=== PATIENT | male | born 1995 | race African-American/Black ===

== ENCOUNTER 2017-11-02 19:27 | Emergency (ER) | payer BC, SELFPAY ==
[2017-11-02 20:16] LABS: Urine Blood NEGATIVE (NEG); Urine Glucose NEGATIVE (NEG); Urine Protein 1+ (NEG); Urine Specific Gravity 1.025 (1.005-1.030); Urine pH 6.5 (5.0-7.0)
--- NOTE | 2017-11-02 20:19 | EDPHYS ---
Physician Documentation [facility] Name: Chucho Machuca Age: 21 yrs Sex: Male : 1995 Arrival Date: 11/02/2017 Time: 19:30 Bed 18 Private MD: ED Physician Anthony Cortés HPI: 11/02 19:49 This 21 yrs old Black Male presents to ER via Ambulatory with complaints of Back Pain. jmm 19:49 The patient presents with pain that is acute. The symptoms are located in the lumbar jmm spine. Onset: The symptoms/episode began/occurred gradually, 1 week(s) ago. The pain does not radiate. Associated signs and symptoms: Pertinent negatives: abdominal pain, dysuria, fever, hematuria, incontinence, numbness, tingling, urinary retention, vomiting. This is a 21 year old male with no chronic medical conditions that presents to the ED with right lower back pain beginning approx 1 week ago. Patient denies fever, abdominal pain, vomiting, shortness of breath, numbness, radiation of pain. 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 . Historical: - Allergies: 19:45 PENICILLINS; fc - Home Meds: 19:45 None [Active]; fc - PMHx: 19:45 None; fc - PSHx: 19:45 None; fc - Immunization history:: Last tetanus immunization: up to date. - Social history:: Smoking status: Patient uses tobacco products, smokes one-half pack cigarettes per day, Patient/guardian denies using alcohol, street drugs. - Ebola Screening: : Patient negative for fever greater than or equal to 101.5 degrees Fahrenheit, and additional compatible Ebola Virus Disease symptoms Patient denies exposure to infectious person Patient denies travel to an Ebola-affected area in the 21 days before illness onset. ROS: 19:49 Constitutional: Negative for fever, chills, and weight loss, Cardiovascular: Negative [facility] for chest pain, palpitations, and edema, Respiratory: Negative for shortness of breath, cough, wheezing, and pleuritic chest pain, Abdomen/GI: Negative for abdominal pain, nausea, vomiting, diarrhea, and constipation. 19:49 MS/Extremity: Negative for injury and deformity, Skin: Negative for injury, rash, and discoloration, Neuro: Negative for headache, weakness, numbness, tingling, and seizure. 19:49 Back: Positive for pain with movement. 19:49 All other systems are negative. Exam: 19:49 Constitutional: This is a well developed, well nourished patient who is awake, alert, jmm and in no acute distress. Head/Face: atraumatic. Eyes: EOMI, no conjunctival erythema appreciated ENT: Moist Mucus Membranes Neck: Trachea midline, Supple Chest/axilla: Normal chest wall appearance and motion. Cardiovascular: Regular rate and rhythm. No edema appreciated Respiratory: Normal respirations, no respiratory distress appreciated Abdomen/GI: Non distended, soft 19:49 MS/ Extremity: Moves all extremities, no obvious deformities appreciated, no edema noted to the lower extremities Neuro: Awake and alert, normal gait 19:49 Back: pain, that is mild, of the right low back, ROM is normal, painful, CVA tenderness, is absent, muscle spasm, is not present. 19:49 Neuro: Orientation: is normal, Mentation: is normal, Memory: is normal, extension of the great toes noted bilaterally. 19:49 Psych: Behavior/mood is pleasant, cooperative. Vital Signs: 19:45 BP 144 / 75; Pulse 65; Resp 18; Pulse Ox 100% on R/A; Weight 69.85 kg (R); Height 5 ft. fc 10 in. (177.80 cm) (R); Pain 7/10; 20:56 BP 127 / 68; Pulse 80; Resp 17 S; Temp 98.5(O); Pulse Ox 100% on R/A; jd3 19:45 Body Mass Index 22.10 (69.85 kg, 177.80 cm) fc MDM: 19:48 Patient medically screened. [facility] 20:16 Data reviewed: vital signs, nurses notes, lab test result(s). Counseling: I had a [facility] detailed discussion with the patient and/or guardian regarding: the historical points, exam findings, and any diagnostic results supporting the discharge/admit diagnosis, the need for outpatient follow up, to return to the emergency department if symptoms worsen or persist or if there are any questions or concerns that arise at home. ED course: Urine dip negative for blood. Symptoms appear consistent with back strain. patient will be put on a course of muscle relaxers and anti inflammatories. Patient advised to return to the ED if he develops abdominal pain, vomiting, fever, or worsening pain. . 20:23 Counseling: I had a detailed discussion with the patient and/or guardian regarding: the [facility] presence of at least one elevated blood pressure reading (>120/80) during this emergency department visit. 11/02 20:11 Order name: Urine Dipstick--Ancillary (enter results) rg2 11/02 20:11 Order name: Urine Dipstick-Ancillary; Complete Time: 20:23 [facility] 11/02 19:48 Order name: Urine Dipstick-Ancillary (obtain specimen); Complete Time: 20:10 [facility] Administered Medications: No medications were administered Disposition: 11/03 09:29 Co-signature as Attending Physician, Anthony Cortés MD I agree with the assessment and luciano plan of care. Disposition: 11/02/17 20:18 Discharged to Home. Impression: Strain of muscle, fascia and tendon of lower back. - Condition is Stable. - Discharge Instructions: Back Pain, Adult. - Prescriptions for Ibuprofen 800 mg Oral Tablet - take 1 tablet by ORAL route every 12 hours As needed take with food; 20 tablet. orphenadrine citrate 100 mg Oral Tablet Sustained Release - take 1 tablet by ORAL route 2 times per day As needed; 20 tablet. - Work release form, Medication Reconciliation Form, Thank You Letter, Antibiotic Education, Prescription Opioid Use form. - Follow up: Private Physician; When: 2 - 3 days; Reason: Continuance of care. Signatures: Dispatcher [employer] Anthony Hwang MD MD cha Mickail, Joel, PA PA jmm Chretien, Felicia, RN RN fc Davies, Jonathon, RN RN jd3 Corrections: (The following items were deleted from the chart) 11/02 21:00 20:18 11/02/2017 20:18 Discharged to Home. Impression: Strain of muscle, fascia and jd3 tendon of lower back. Condition is Stable. Forms are Medication Reconciliation Form, Thank You Letter, Antibiotic Education, Prescription Opioid Use. Follow up: Private Physician; When: 2 - 3 days; Reason: Continuance of care. mira
--- NOTE | 2017-11-02 20:19 | ER ---
Nurse's Notes [facility] Emergency Department Name: Chucho Machuca Age: 21 yrs Sex: Male : 1995 Arrival Date: 11/02/2017 Time: 19:30 Bed 18 Private MD: Diagnosis: Strain of muscle, fascia and tendon of lower back Presentation: 11/02 19:44 Presenting complaint: Patient states: that he is having lower back back that started 1 fc week ago. Denies any injury, urinary problems or bowel problems. Transition of care: patient was not received from another setting of care. Onset of symptoms was October 26, 2017. Risk Assessment: Do you want to hurt yourself or someone else? Patient reports no desire to harm self or others. Initial Sepsis Screen: Does the patient meet any 2 criteria? No. Patient's initial sepsis screen is negative. Does the patient have a suspected source of infection? No. Patient's initial sepsis screen is negative. Care prior to arrival: None. 19:44 Method Of Arrival: Ambulatory 19:44 Acuity: TEQUILA 4 Triage Assessment: 19:46 General: Appears comfortable, slender, Behavior is calm, cooperative, appropriate for age. Pain: Complains of pain in low back area Pain currently is 7 out of 10 on a pain scale. Quality of pain is described as aching, Pain began 1 week ago Is continuous. EENT: No deficits noted. Neuro: Level of Consciousness is awake, alert, obeys commands, Oriented to person, place, time, situation. Cardiovascular: No deficits noted. Respiratory: No deficits noted. GI: No deficits noted. : No deficits noted. Derm: Skin is pink, warm \T\ dry. Musculoskeletal: Circulation, motion, and sensation intact. Capillary refill < 3 seconds, Range of motion: intact in all extremities, Reports pain in low back area. Historical: - Allergies: 19:45 PENICILLINS; fc - Home Meds: 19:45 None [Active]; fc - PMHx: 19:45 None; fc - PSHx: 19:45 None; fc - Immunization history:: Last tetanus immunization: up to date. - Social history:: Smoking status: Patient uses tobacco products, smokes one-half pack cigarettes per day, Patient/guardian denies using alcohol, street drugs. - Ebola Screening: : Patient negative for fever greater than or equal to 101.5 degrees Fahrenheit, and additional compatible Ebola Virus Disease symptoms Patient denies exposure to infectious person Patient denies travel to an Ebola-affected area in the 21 days before illness onset. Screenin:46 Abuse screen: Denies threats or abuse. Nutritional screening: No deficits noted. fc Tuberculosis screening: No symptoms or risk factors identified. Fall Risk None identified. Assessment: 19:50 General: Appears in no apparent distress. uncomfortable, Behavior is calm, cooperative, jd3 appropriate for age. Pain: Complains of pain in back Pain currently is 7 out of 10 on a pain scale. Quality of pain is described as aching, Is continuous. Neuro: Level of Consciousness is awake, alert, obeys commands, Oriented to person, place, time, situation. Cardiovascular: Heart tones S1 S2 present Capillary refill < 3 seconds Patient's skin is warm and dry. Respiratory: Airway is patent Respiratory effort is even, unlabored, Respiratory pattern is regular, symmetrical, Breath sounds are clear bilaterally. GI: Abdomen is flat, Bowel sounds present X 4 quads. Abd is soft and non tender X 4 quads. Patient currently denies diarrhea, nausea, vomiting. : No signs and/or symptoms were reported regarding the genitourinary system. Denies burning with urination, inability to void, incontinence. EENT: No signs and/or symptoms were reported regarding the EENT system. Derm: Skin is intact, Skin is dry, Skin is normal, Skin temperature is warm. Musculoskeletal: Circulation, motion, and sensation intact. Range of motion: intact in all extremities. 20:59 Reassessment: Patient appears in no apparent distress at this time. Patient and/or jd3 family updated on plan of care and expected duration. Pain level reassessed. Patient is alert, oriented x 3, equal unlabored respirations, skin warm/dry/pink. pt reported understanding of discharge instructions, even and steady gait upon discharge. Vital Signs: 19:45 BP 144 / 75; Pulse 65; Resp 18; Pulse Ox 100% on R/A; Weight 69.85 kg (R); Height 5 ft. fc 10 in. (177.80 cm) (R); Pain 7/10; 20:56 BP 127 / 68; Pulse 80; Resp 17 S; Temp 98.5(O); Pulse Ox 100% on R/A; jd3 19:45 Body Mass Index 22.10 (69.85 kg, 177.80 cm) ED Course: 19:30 Patient arrived in ED. am2 19:45 Triage completed. 19:45 Arm band placed on Patient placed in an exam room, on a stretcher. 19:46 Jason Linda, RN is Primary Nurse. jd3 19:46 Patient has correct armband on for positive identification. Bed in low position. Call light in reach. Side rails up X 1. 19:48 Tom Lama PA is PHCP. [facility] 19:48 Anthony Cortés MD is Attending Physician. [facility] 20:57 No provider procedures requiring assistance completed. Patient did not have IV access jd3 during this emergency room visit. Administered Medications: No medications were administered Outcome: 20:18 Discharge ordered by MD. [facility] 20:58 Discharged to home ambulatory. jd3 20:58 Condition: stable 20:58 Discharge instructions given to patient, Instructed on discharge instructions, follow up and referral plans. medication usage, Demonstrated understanding of instructions, follow-up care, medications, Prescriptions given X 2. 21:00 Patient left the ED. jd3 Signatures: Tom Lama PA PA jmm Chretien, Felicia, RN RN Nicole Lechuga am2 Jason Linda, RN RN jd3
== END 2017-11-02 21:00 | disposition home or self-care (01) ==
LOC: ER 19:27
DX: S39.012A Strain of muscle, fascia and tendon of lower back, initial encounter (principal); F17.210 Nicotine dependence, cigarettes, uncomplicated; X58.XXXA Exposure to other specified factors, initial encounter; Y93.89 Activity, other specified; Y92.89 Other specified places as the place of occurrence of the external cause; Y99.8 Other external cause status; Z88.0 Allergy status to penicillin
CPT/HCPCS: 81003; 99282

== ENCOUNTER 2018-11-25 21:07 | Emergency (ER) | payer OTHER, SELFPAY ==
[2018-11-25] MEDS ORDERED: SMZ./TMP. 800/160 MG TABLET ONE (22:06)
[2018-11-25] MEDS ORDERED: LIDOCAINE 1% MPF 5 ML VIAL ONE (22:06)
--- NOTE | 2018-11-25 22:06 | EDPHYS ---
Physician Documentation [facility] Name: Chucho Machuca Age: 22 yrs Sex: Male : 1995 Arrival Date: 11/25/2018 Time: 21:09 Bed 16 Private MD: ED Physician Anthony Cortés HPI: 11/25 21:41 This 22 yrs old Black Male presents to ER via Ambulatory with complaints of Boil on Leg.kb 21:41 The patient presents with an abscess of the lateral aspect of right thigh. Description: kb erythematous, swollen, warm. Onset: The symptoms/episode began/occurred 4 day(s) ago. Possible cause(s): unknown. Associated signs and symptoms: Pertinent positives: erythema, swelling. Modifying factors: the symptoms are alleviated by nothing, the symptoms are aggravated by pressure, squeezing the lesion and expressing the contents, touching. Severity of symptoms: At their worst the symptoms were moderate, in the emergency department the symptoms are unchanged. The patient has experienced similar episodes in the past, a few times. The patient has not recently seen a physician. Historical: - Allergies: 21:14 PENICILLINS; aj1 - Home Meds: 21:14 None [Active]; aj1 - PMHx: 21:14 None; aj1 - PSHx: 21:14 None; aj1 - Immunization history:: Flu vaccine is not up to date. - Social history:: Smoking status: Patient uses tobacco products, denies chronic smoking, but will smoke occasionally. - Ebola Screening: : Patient denies travel to an Ebola-affected area in the 21 days before illness onset. ROS: 21:41 Constitutional: Negative for fever, chills, and weight loss, ENT: Negative for injury, kb pain, and discharge, Neck: Negative for injury, pain, and swelling, Cardiovascular: Negative for chest pain, palpitations, and edema, Respiratory: Negative for shortness of breath, cough, wheezing, and pleuritic chest pain, Abdomen/GI: Negative for abdominal pain, nausea, vomiting, diarrhea, and constipation, MS/Extremity: Negative for injury and deformity, Neuro: Negative for headache, weakness, numbness, tingling, and seizure. 21:41 Skin: Positive for abscess, of the lateral aspect of right thigh. Exam: 21:41 Constitutional: This is a well developed, well nourished patient who is awake, alert, kb and in no acute distress. Head/Face: Normocephalic, atraumatic. ENT: Nares patent. No nasal discharge, no septal abnormalities noted. Tympanic membranes are normal and external auditory canals are clear. Oropharynx with no redness, swelling, or masses, exudates, or evidence of obstruction, uvula midline. Mucous membranes moist. Neck: Trachea midline, no thyromegaly or masses palpated, and no cervical lymphadenopathy. Supple, full range of motion without nuchal rigidity, or vertebral point tenderness. No Meningismus. Chest/axilla: Normal chest wall appearance and motion. Nontender with no deformity. No lesions are appreciated. Cardiovascular: Regular rate and rhythm with a normal S1 and S2. No gallops, murmurs, or rubs. Normal PMI, no JVD. No pulse deficits. Respiratory: Lungs have equal breath sounds bilaterally, clear to auscultation and percussion. No rales, rhonchi or wheezes noted. No increased work of breathing, no retractions or nasal flaring. Abdomen/GI: Soft, non-tender, with normal bowel sounds. No distension or tympany. No guarding or rebound. No evidence of tenderness throughout. MS/ Extremity: Pulses equal, no cyanosis. Neurovascular intact. Full, normal range of motion. Neuro: Awake and alert, GCS 15, oriented to person, place, time, and situation. Cranial nerves II-XII grossly intact. Motor strength 5/5 in all extremities. Sensory grossly intact. Cerebellar exam normal. Normal gait. 21:41 Skin: abscess, that is moderate sized, of the lateral aspect of right thigh, with fluctuance, with surrounding cellulitis, that is mild. Vital Signs: 21:14 BP 140 / 63; Pulse 83; Resp 18; Temp 99.5(TE); Pulse Ox 99% on R/A; Weight 78.47 kg aj1 (R); Height 5 ft. 10 in. (177.80 cm) (R); Pain 8/10; 22:00 BP 126 / 79; Pulse 59; Resp 16; Pulse Ox 100% on R/A; jb4 21:14 Body Mass Index 24.82 (78.47 kg, 177.80 cm) [facility] Procedures: 22:05 I \T\ D: Incision and drainage was performed for an abscess of the right lateral aspect kb of right thigh Prepped with Betadine, Anesthetized with 3 ml's 1% Lidocaine. Incised with #11 blade. Drained moderate amount purulent fluid. Packed with iodoform gauze, Dressing: sterile 4x4 gauze, the patient tolerated the procedure well. MDM: 21:27 Patient medically screened. [facility] 21:40 Data reviewed: vital signs, nurses notes. Data interpreted: Pulse oximetry: on room air kb is 99 %. Interpretation: normal. Counseling: I had a detailed discussion with the patient and/or guardian regarding: the historical points, exam findings, and any diagnostic results supporting the discharge/admit diagnosis, the need for outpatient follow up, a family practitioner, to return to the emergency department if symptoms worsen or persist or if there are any questions or concerns that arise at home. 11/25 22:07 Order name: Wound Culture kb 11/25 21:39 Order name: I\T\D Setup; Complete Time: 21:52 kb Administered Medications: 21:52 Drug: Bactrim (160 mg-800 mg (DS) 1 tablet Route: PO; jb4 22:30 Follow up: Response: No adverse reaction jb4 21:59 Drug: Lidocaine (1 %) 1 vials {Note: administered by ER provider..} Volume: 5 ml; jb4 Route: Infiltration; 22:32 Follow up: Response: No adverse reaction jb4 Disposition: 11/26 07:20 Co-signature as Attending Physician, Anthony Cortés MD I agree with the assessment and [facility] plan of care. Disposition: 11/25/18 22:06 Discharged to Home. Impression: Cutaneous abscess of right lower limb. - Condition is Stable. - Discharge Instructions: Skin Abscess, [id number], Incision and Drainage, Care After. - Prescriptions for Bactrim DS 800- 160 mg Oral Tablet - take 1 tablet by ORAL route every 12 hours for 10 days; 20 tablet. - Medication Reconciliation Form, Thank You Letter, Antibiotic Education, Prescription Opioid Use form. - Follow up: Emergency Department; When: As needed; Reason: Worsening of condition. Follow up: Private Physician; When: 2 - 3 days; Reason: Recheck today's complaints, Continuance of care, Re-evaluation by your physician. Signatures: Dispatcher [facility] Kimmy Van FNP-C FNP-Whit Danya Barker, RN RN aj1 Anthony Cortés MD MD cha Bryson, James, RN RN jb4 Corrections: (The following items were deleted from the chart) 11/25 22:32 22:06 11/25/2018 22:06 Discharged to Home. Impression: Cutaneous abscess of right lower jb4 limb. Condition is Stable. Forms are Medication Reconciliation Form, Thank You Letter, Antibiotic Education, Prescription Opioid Use. Follow up: Emergency Department; When: As needed; Reason: Worsening of condition. Follow up: Private Physician; When: 2 - 3 days; Reason: Recheck today's complaints, Continuance of care, Re-evaluation by your physician. kb
--- NOTE | 2018-11-25 22:06 | ER ---
Nurse's Notes [facility] Name: Chucho Machuca Age: 22 yrs Sex: Male : 1995 Arrival Date: 11/25/2018 Time: 21:09 Bed 16 Private MD: Diagnosis: Cutaneous abscess of right lower limb Presentation: 11/25 21:13 Presenting complaint: Patient states: "I got a boil on my leg" Reports that he noticed aj1 it 3 or 4 days ago. Denies drainage. Denies fever. Transition of care: patient was not received from another setting of care. Onset of symptoms was October 2018. Risk Assessment: Do you want to hurt yourself or someone else? Patient reports no desire to harm self or others. Initial Sepsis Screen: Does the patient meet any 2 criteria? No. Patient's initial sepsis screen is negative. Does the patient have a suspected source of infection? Yes: Skin breakdown/wound. Care prior to arrival: None. 21:13 Method Of Arrival: [place] [facility] [place] 21:13 Acuity: TEQUILA 4 aj1 Triage Assessment: 21:14 General: Appears in no apparent distress. comfortable, Behavior is calm, cooperative, aj1 appropriate for age. Pain: Complains of pain in lateral aspect of right thigh Pain currently is 8 out of 10 on a pain scale. Neuro: Level of Consciousness is awake, alert, obeys commands. Cardiovascular: Patient's skin is warm and dry. Respiratory: Airway is patent Respiratory effort is even, unlabored, Respiratory pattern is regular, symmetrical. Historical: - Allergies: 21:14 PENICILLINS; aj1 - Home Meds: 21:14 None [Active]; aj1 - PMHx: 21:14 None; aj1 - PSHx: 21:14 None; aj1 - Immunization history:: Flu vaccine is not up to date. - Social history:: Smoking status: Patient uses tobacco products, denies chronic smoking, but will smoke occasionally. - Ebola Screening: : Patient denies travel to an Ebola-affected area in the 21 days before illness onset. Screenin:25 Abuse screen: Denies threats or abuse. Nutritional screening: No deficits noted. jb4 Tuberculosis screening: No symptoms or risk factors identified. Fall Risk None identified. Assessment: 21:25 General: Appears in no apparent distress. uncomfortable, Behavior is calm, cooperative, jb4 appropriate for age. Pain: Complains of pain in right hip Pain does not radiate. Pain currently is 8 out of 10 on a pain scale. Quality of pain is described as pressure. Neuro: Level of Consciousness is awake, alert, obeys commands, Oriented to person, place, time, situation. Cardiovascular: Patient's skin is warm and dry. Respiratory: Airway is patent Respiratory effort is even, unlabored, Respiratory pattern is regular, symmetrical. GI: No signs and/or symptoms were reported involving the gastrointestinal system. : No signs and/or symptoms were reported regarding the genitourinary system. EENT: No signs and/or symptoms were reported regarding the EENT system. Derm: Skin is intact, Skin is dry, Skin is normal, Skin temperature is warm Abscess located on right hip is quarter sized, has no drainage, is red, is raised. Musculoskeletal: Circulation, motion, and sensation intact. Range of motion: intact in all extremities. 21:25 Reassessment: Patient appears in no apparent distress at this time. Patient and/or jb4 family updated on plan of care and expected duration. Pain level reassessed. Patient is alert, oriented x 3, equal unlabored respirations, skin warm/dry/pink. I\\T\\D performed by ER provider. 22:10 Reassessment: Patient appears in no apparent distress at this time. Patient and/or jb4 family updated on plan of care and expected duration. Pain level reassessed. Patient is alert, oriented x 3, equal unlabored respirations, skin warm/dry/pink. PT left Ed ambulatory with significant other, verbalized understanding of d/c and follow up instructions, denies questions or concerns. Vital Signs: 21:14 BP 140 / 63; Pulse 83; Resp 18; Temp 99.5(TE); Pulse Ox 99% on R/A; Weight 78.47 kg aj1 (R); Height 5 ft. 10 in. (177.80 cm) (R); Pain 8/10; 22:00 BP 126 / 79; Pulse 59; Resp 16; Pulse Ox 100% on R/A; jb4 21:14 Body Mass Index 24.82 (78.47 kg, 177.80 cm) aj1 ED Course: 21:09 Patient arrived in ED. ag3 21:14 Triage completed. aj1 21:14 Arm band placed on Patient placed in waiting room, Patient notified of wait time. aj1 21:20 Kimmy Ortega FNP-C is [facility]. kb 21:20 Anthony Cortés MD is Attending Physician. kb 21:25 Patient has correct armband on for positive identification. Bed in low position. Call jb4 light in reach. Side rails up X 1. Pulse ox on. NIBP on. 21:45 Chas Segura, RN is Primary Nurse. jb4 22:00 Assist provider with I \\T\\ D: of an abscess on right hip Set up I\\T\\D tray. Performed by doreen 4 Kimmy OLIVIA Culture sent to lab. Wound packed. iodoform gauze, Patient tolerated well. 22:10 Patient did not have IV access during this emergency room visit. jb4 Administered Medications: 21:52 Drug: Bactrim (160 mg-800 mg (DS) 1 tablet Route: PO; jb4 22:30 Follow up: Response: No adverse reaction jb4 21:59 Drug: Lidocaine (1 %) 1 vials {Note: administered by ER provider..} Volume: 5 ml; jb4 Route: Infiltration; 22:32 Follow up: Response: No adverse reaction jb4 Outcome: 22:06 Discharge ordered by . kb 22:10 Discharged to home ambulatory, with significant other. jb4 22:10 Condition: stable 22:10 Discharge instructions given to patient, significant other, Instructed on discharge instructions, follow up and referral plans. medication usage, Demonstrated understanding of instructions, follow-up care, medications, Prescriptions given X 1. 22:32 Patient left the ED. jb4 Addendum: 11/29/2018 07:51 Addendum: Culture Results: Positive wound culture. No further action required. Bacteria i w sensitive to prescribed antibiotic. Signatures: Kimmy Ortega FNP-C TRANSITION SPECIALIST-CkDanya Magallanes RN RN aj1 Maryann Escamilla RN RN iw Chas Segura RN RN jb4 Genet Mata ag3 Corrections: (The following items were deleted from the chart) 11/25 22:29 22:15 Initial lab(s) drawn, by ia, sent to [facility]. [facility] 22:30 22:15 BP 136 / 84; Pulse 98bpm; Resp 16bpm; Pulse Ox 98% RA; jb4 jb4 22:30 22:26 Reassessment: Patient appears in no apparent distress at this time. Patient jb4 and/or family updated on plan of care and expected duration. Pain level reassessed. Patient is alert, oriented x 3, equal unlabored respirations, skin warm/dry/pink. jb4
== END 2018-11-25 22:32 | disposition home or self-care (01) ==
LOC: ER 21:07
PROC: 0J9L0ZZ Drainage of Right Upper Leg Subcutaneous Tissue and Fascia, Open Approach (ICD-10-PCS; principal; 2018-11-25)
DX: L02.415 Cutaneous abscess of right lower limb (principal); Z72.0 Tobacco use; Z88.0 Allergy status to penicillin
CPT/HCPCS: 87070; 87077; 87186; 87205; 99284

== ENCOUNTER 2019-04-13 04:08 | Emergency (ER) | payer SELFPAY ==
[2019-04-13] MEDS ORDERED: IBUPROFEN 200 MG TAB PO ONE (05:40)
[2019-04-13] MEDS ORDERED: IBUPROFEN 400 MG TAB ONE (05:40)
--- NOTE | 2019-04-13 06:05 | ER ---
Nurse's Notes [facility] Name: Chucho Machuca Age: 23 yrs Sex: Male : 1995 Arrival Date: 04/13/2019 Time: 04:11 Bed 5 Private MD: Diagnosis: Concussion with loss of consciousness of 30 minutes or less;Contusion of other part of head Presentation: 04/13 04:18 Presenting complaint: Patient states: I fell down some stairs and my friends say I tl1 might have a concussion. I hit the side of my head and face. Care prior to arrival: None. Mechanism of Injury: Fall down steps. Trauma event details: Injury occurred in the [facility]. 04:18 Acuity: TEQUILA 4 tl1 04:18 Method Of Arrival: Ambulatory tl1 04:20 Transition of care: patient was not received from another setting of care. Onset of ea symptoms was April 13, 2019. Risk Assessment: Do you want to hurt yourself or someone else? Patient reports no desire to harm self or others. Initial Sepsis Screen: Does the patient meet any 2 criteria? No. Patient's initial sepsis screen is negative. Does the patient have a suspected source of infection? No. Patient's initial sepsis screen is negative. Trauma Activation: Not Applicable Physician: ED Physician; Name: ; Notified At: ; Arrived At: Physician: General Surgeon; Name: ; Notified At: ; Arrived At: Physician: Radiology; Name: ; Notified At: ; Arrived At: Physician: Respiratory; Name: ; Notified At: ; Arrived At: Physician: Lab; Name: ; Notified At: ; Arrived At: Historical: - Allergies: 04:20 PENICILLINS; tl1 - Home Meds: 04:20 None [Active]; tl1 - PMHx: 04:20 None; tl1 - PSHx: 04:20 None; tl1 - Immunization history: Last tetanus immunization: unknown. - Social history:: Smoking status: Patient uses tobacco products, denies chronic smoking, but will smoke occasionally, Patient uses alcohol, occasionally. Patient/guardian denies using street drugs. - Ebola Screening: : Patient negative for fever greater than or equal to 101.5 degrees Fahrenheit, and additional compatible Ebola Virus Disease symptoms Patient denies exposure to infectious person Patient denies travel to an Ebola-affected area in the 21 days before illness onset. Screenin:20 Nutritional screening: No deficits noted. Fall Risk Fall in past 12 months (25 points). ea 04:23 Abuse screen: Denies threats or abuse. Denies injuries from another. Tuberculosis tl1 screening: No symptoms or risk factors identified. Primary Survey: 04:21 NO uncontrolled hemorrhage observed. A: The patient is alert. Airway: patent. tl1 Breathing/Chest: Respiratory pattern: regular, Respiratory effort: spontaneous, unlabored, Breath sounds: clear, bilaterally. Chest inspection: symmetrical rise and fall of the chest. Circulation: Skin color: pink, Skin temperature: warm, dry. Disability Alert. Exposure/Environment: There is no evidence of uncontrolled external bleeding. Obvious injury(ies) are noted at this time: closed head injury. Reassessment Airway Airway Patent Breathing/Chest Respiratory pattern Regular Respiratory effort Spontaneous Unlabored Circulation Pulses Palpable Color [place] Temperature Warm Dry Disability Alert. Secondary Survey: 04:22 HEENT: Head. Gastrointestinal: No deficits noted. : No deficits noted. tl1 Musculoskeletal: No deficits noted. Injury Description: Head injury sustained to left cheek and left bahai is closed, did not have loss of consciousness, was sustained 30-60 minutes ago. Assessment: 04:24 General: Appears in no apparent distress. Behavior is calm, cooperative, appropriate tl1 for age. Pain: Denies pain. Neuro: Level of Consciousness is awake, alert, obeys commands, Oriented to person, place, time, situation, Gait is steady, Speech is normal. EENT: No signs and/or symptoms were reported regarding the EENT system. Cardiovascular: Denies chest pain. Respiratory: Airway is patent Trachea midline Respiratory effort is even, unlabored, Breath sounds are clear bilaterally. GI: No signs and/or symptoms were reported involving the gastrointestinal system. : No signs and/or symptoms were reported regarding the genitourinary system. Derm: No signs and/or symptoms reported regarding the dermatologic system. Musculoskeletal: No signs and/or symptoms reported regarding the musculoskeletal system. Injury Description: Head injury sustained to left bahai and left cheek is closed, did not have loss of consciousness, was sustained 30-60 minutes ago. 05:05 Reassessment: Friend of patient called and stated pt fell down and hit the left side of tl1 his face on the concrete and passed out for approx 45 seconds. Pt states he doesn't recall passing out. pt is alert and oriented during assessment. 06:08 Reassessment: Patient and/or family updated on plan of care and expected duration. Pain ea level reassessed. Patient is alert, oriented x 3, equal unlabored respirations, skin warm/dry/pink. Discharge instruction given to patient and significant other, both verbalized the understanding of instruction. Pt left ED ambulatory, tolerating well. Vital Signs: 04:20 BP 120 / 61; Pulse 113; Resp 17; Temp 98.6; Pulse Ox 100% on R/A; Weight 78.47 kg; tl1 Height 5 ft. 9 in. (175.26 cm); Pain 0/10; 05:40 BP 126 / 77; Pulse 80; Resp 17; Pulse Ox 100% on R/A; tl1 06:07 BP 115 / 76; Pulse 79; Resp 18; Pulse Ox 100% ; ea 04:20 Body Mass Index 25.55 (78.47 kg, 175.26 cm) tl1 [place] Coma Score: 04:41 Eye Response: spontaneous(4). Verbal Response: oriented(5). Motor Response: obeys tl1 commands(6). Total: 15. Trauma Score (Adult): 04:41 Eye Response: spontaneous(1); Verbal Response: oriented(1); Motor Response: obeys tl1 commands(2); Systolic BP: > 89 mm Hg(4); Respiratory Rate: 10 to 29 per min(4); [place] Score: 15; Trauma Score: 12 ED Course: 04:11 Patient arrived in ED. jg7 04:13 Chevy Lucas MD is Attending Physician. tw4 04:18 Vianca Warner RN is Primary Nurse. tl1 04:19 Triage completed. tl1 04:20 Thermoregulation: warm blanket given to patient. ea 04:21 Arm band placed on right wrist. tl1 04:24 Patient has correct armband on for positive identification. Bed in low position. Call ea light in reach. 04:24 No provider procedures requiring assistance completed. Patient maintains SpO2 tl1 saturation greater than 95% on room air. 06:10 Patient did not have IV access during this emergency room visit. ea Administered Medications: 05:40 Drug: Ibuprofen 600 mg Route: PO; tl1 06:07 Follow up: Response: No adverse reaction ea Intake: 06:10 PO: 0ml; Total: 0ml. ea Outcome: 06:04 Discharge ordered by . tw4 06:10 Discharged to home ambulatory, with family. ea 06:10 Condition: stable 06:10 Patient's length of stay was not longer than 2 hours. 06:10 Discharge instructions given to patient, Instructed on discharge instructions, follow ea up and referral plans. Demonstrated understanding of instructions, follow-up care, medications, Prescriptions given X 1. 06:12 Patient left the ED. ea Signatures: Vianca Warner, RN RN tl1 Cony Escobra RN RN Chevy Holcomb MD MD tw4 Esthela Trinh7
--- NOTE | 2019-04-13 06:06 | EDPHYS ---
Physician Documentation [facility] Name: Chucho Machuca Age: 23 yrs Sex: Male : 1995 Arrival Date: 04/13/2019 Time: 04:11 Bed 5 Private MD: ED Physician Chevy Lucas HPI: 04/13 05:59 This 23 yrs old Black Male presents to ER via Ambulatory with complaints of Fall Injury.tw4 05:59 Details of fall: The patient fell from an upright position, while walking. Onset: The tw4 symptoms/episode began/occurred today. Associated injuries: The patient sustained injury to the head. Severity of symptoms: At their worst the symptoms were mild, in the emergency department the symptoms. The patient has not experienced similar symptoms in the past. Historical: - Allergies: 04:20 PENICILLINS; tl1 - Home Meds: 04:20 None [Active]; tl1 - PMHx: 04:20 None; tl1 - PSHx: 04:20 None; tl1 - Immunization history: Last tetanus immunization: unknown. - Social history:: Smoking status: Patient uses tobacco products, denies chronic smoking, but will smoke occasionally, Patient uses alcohol, occasionally. Patient/guardian denies using street drugs. - Ebola Screening: : Patient negative for fever greater than or equal to 101.5 degrees Fahrenheit, and additional compatible Ebola Virus Disease symptoms Patient denies exposure to infectious person Patient denies travel to an Ebola-affected area in the 21 days before illness onset. ROS: 05:59 Constitutional: Negative for fever, chills, and weight loss, Eyes: Negative for injury, tw4 pain, redness, and discharge, Cardiovascular: Negative for chest pain, palpitations, and edema, Respiratory: Negative for shortness of breath, cough, wheezing, and pleuritic chest pain, Abdomen/GI: Negative for abdominal pain, nausea, vomiting, diarrhea, and constipation, Back: Negative for injury and pain, MS/Extremity: Negative for injury and deformity, Skin: Negative for injury, rash, and discoloration. Exam: 05:59 Constitutional: This is a well developed, well nourished patient who is awake, alert, tw4 and in no acute distress. Chest/axilla: Normal chest wall appearance and motion. Nontender with no deformity. No lesions are appreciated. 05:59 Cardiovascular: Regular rate and rhythm with a normal S1 and S2. No gallops, murmurs, or rubs. Normal PMI, no JVD. No pulse deficits. Respiratory: Lungs have equal breath sounds bilaterally, clear to auscultation and percussion. No rales, rhonchi or wheezes noted. No increased work of breathing, no retractions or nasal flaring. Abdomen/GI: Soft, non-tender, with normal bowel sounds. No distension or tympany. No guarding or rebound. No evidence of tenderness throughout. Back: No spinal tenderness. No costovertebral tenderness. Full range of motion. MS/ Extremity: Pulses equal, no cyanosis. Neurovascular intact. Full, normal range of motion. Neuro: Awake and alert, GCS 15, oriented to person, place, time, and situation. Cranial nerves II-XII grossly intact. Motor strength 5/5 in all extremities. Sensory grossly intact. Cerebellar exam normal. Normal gait. 05:59 Head/face: Noted is deformity, of the left cheek. Vital Signs: 04:20 BP 120 / 61; Pulse 113; Resp 17; Temp 98.6; Pulse Ox 100% on R/A; Weight 78.47 kg; tl1 Height 5 ft. 9 in. (175.26 cm); Pain 0/10; 05:40 BP 126 / 77; Pulse 80; Resp 17; Pulse Ox 100% on R/A; tl1 06:07 BP 115 / 76; Pulse 79; Resp 18; Pulse Ox 100% ; ea 04:20 Body Mass Index 25.55 (78.47 kg, 175.26 cm) tl1 [place] Coma Score: 04:41 Eye Response: spontaneous(4). Verbal Response: oriented(5). Motor Response: obeys tl1 commands(6). Total: 15. Trauma Score (Adult): 04:41 Eye Response: spontaneous(1); Verbal Response: oriented(1); Motor Response: obeys tl1 commands(2); Systolic BP: > 89 mm Hg(4); Respiratory Rate: 10 to 29 per min(4); [place] Score: 15; Trauma Score: 12 MDM: 04:20 Patient medically screened. tw4 05:59 Differential diagnosis: abrasion, contusion, fracture. Data reviewed: vital signs, tw4 nurses notes. Data interpreted: Pulse oximetry: Interpretation: normal. Counseling: I had a detailed discussion with the patient and/or guardian regarding: the historical points, exam findings, and any diagnostic results supporting the discharge/admit diagnosis. Special discussion: I discussed with the patient/guardian in detail that at this point there is no indication for admission to the hospital. It is understood, however, that if the symptoms persist or worsen the patient needs to return immediately for re-evaluation. Special discussion: Based on the patient's history, exam and DX evaluation, there is no indication for emergent intervention or inpatient TX. It is understood by the patient/guardian that if the SXs persist or worsen they need to return immediately for re-evaluation. 04/13 04:45 Order name: CT Head Brain wo Cont tw4 Administered Medications: 05:40 Drug: Ibuprofen 600 mg Route: PO; tl1 06:07 Follow up: Response: No adverse reaction ea Disposition: 04/13/19 06:04 Discharged to Home. Impression: Concussion with loss of consciousness of 30 minutes or less, Contusion of other part of head. - Condition is Stable. - Discharge Instructions: Contusion, Head Injury, Adult, [id number]. - Prescriptions for Ibuprofen 800 mg Oral Tablet - take 1 tablet by ORAL route every 8 hours As needed take with food; 30 tablet. - Work release form, Family Work Release, Medication Reconciliation Form, Thank You Letter, Antibiotic Education, Prescription Opioid Use form. - Follow up: Private Physician; When: Upon discharge from the Emergency Department; Reason: Recheck today's complaints, Continuance of care. - Problem is new. - Symptoms have improved. Signatures: Dispatcher [employer] EDOK Vianca Warner RN RN tl1 Cony Escobar RN Chevy Herrera ea, MD MD tw4 Corrections: (The following items were deleted from the chart) 06:12 06:04 04/13/2019 06:04 Discharged to Home. Impression: Concussion with loss of ea consciousness of 30 minutes or less; Contusion of other part of head. Condition is Stable. Forms are Medication Reconciliation Form, Thank You Letter, Antibiotic Education, Prescription Opioid Use. Follow up: Private Physician; When: Upon discharge from the Emergency Department; Reason: Recheck today's complaints, Continuance of care. Problem is new. Symptoms have improved. tw4
[2019-04-13 06:18] VITALS: TEMP 98.6; O2SAT 100
[2019-04-13 06:21] VITALS: BP 115/76
--- NOTE | 2019-04-13 12:23 | RAD REPORT ---
EXAM DESCRIPTION: CT - Head Brain Wo Cont - 04/13/2019 5:43 am CLINICAL HISTORY: The patient is 23 years old and is Male; PAIN TECHNIQUE: Axial computed tomography images of the head/brain without intravenous contrast. Sagitt al and coronal reformatted images were created and reviewed. This CT exam was performed using one o r more of the following dose reduction techniques: automated exposure control, adjustment of the mA and/or kV according to patient size, and/or use of iterative reconstruction technique. COMPARISON: No relevant prior studies available. FINDINGS: BRAIN: Unremarkable. The small-white matter differentiation is preserved . No hemorrhag e. No significant white matter disease. No edema. No extra-axial fluid collections. VENTRICLES: Unremarkable. No ventriculomegaly. BONES/JOINTS: No acute fracture. SOFT TISSUES: Unremarkable. SINUSES: Unremarkable as visualized. No acute sinusitis. MASTOID AIR CELLS: Unremarkable as visualized. No mastoid effusion. ORBITS: Unremarkable as visualized. IMPRESSION: No acute intracranial findings. Electronically signed by: Yeni Aguirre MD 04/13/2019 5:37 AM GEAR HOBBER OPERATOR Due to temporary technical issues with the PACS/Fluency reporting system, reports are being signed by the in house radiologist as a courtesy to ensure prompt reporting. The interpreting radiologist is f ully responsible for the content of the report.
== END 2019-04-13 06:12 | disposition home or self-care (01) ==
LOC: ER 04:08
DX: S06.0X1A Concussion with loss of consciousness of 30 minutes or less, initial encounter (principal); W19.XXXA Unspecified fall, initial encounter; Y93.01 Activity, walking, marching and hiking; Y92.9 Unspecified place or not applicable; Z72.0 Tobacco use; Z88.0 Allergy status to penicillin
CPT/HCPCS: 70450; 99284

== ENCOUNTER 2020-11-23 08:46 | Emergency (ER) | payer BC ==
[2020-11-23] MEDS ORDERED: DIPHENHYDRAMINE 25 MG TAB/CAP ONE (09:21)
[2020-11-23] MEDS ORDERED: FAMOTIDINE 20 MG TAB ONE (09:21)
[2020-11-23] MEDS ORDERED: predniSONE 20 MG TAB ONE (09:21)
--- NOTE | 2020-11-23 10:23 | EDPHYS ---
Physician Documentation [facility] Name: Chucho Machuca Age: 24 yrs Sex: Male : 1995 Arrival Date: 11/23/2020 Time: 08:46 Bed 12 Private MD: HEIDY Physician Anthony Cortés HPI: 11/23 08:56 This 24 yrs old Black Male presents to ER via Ambulatory with complaints of Allergic cp Reaction. 08:56 The patient presents with itching. Onset: The symptoms/episode began/occurred suddenly, cp just prior to arrival. Possible causes: drink with dania. At home the patient or guardian has treated the symptoms with nothing. Historical: - Allergies: 08:51 PENICILLINS; aa5 - Home Meds: 08:51 None [Active]; aa5 - PMHx: 08:51 None; aa5 - PSHx: 08:51 None; aa5 - Immunization history:: Adult Immunizations up to date. - Social history:: Smoking status: Patient denies any tobacco usage or history of. ROS: 09:00 Skin: Positive for of the right hand, left hand, right foot and left foot, itching, cp Negative for rash. 09:00 Eyes: Negative for injury, pain, redness, and discharge. cp 09:00 Constitutional: Negative for body aches, chills, fever, poor PO intake. 09:00 ENT: Positive for throat itching, Negative for sore throat, difficulty swallowing, difficulty handling secretions. 09:00 Cardiovascular: Negative for chest pain. 09:00 Respiratory: Negative for cough, shortness of breath, wheezing. 09:00 Abdomen/GI: Negative for abdominal pain, nausea, vomiting, and diarrhea. 09:00 Neuro: Negative for headache, weakness. 09:00 All other systems are negative. Exam: 09:05 Constitutional: The patient appears in no acute distress, alert, awake, non-toxic, well cp developed, well nourished. 09:05 Head/Face: Normocephalic, atraumatic. cp 09:05 Eyes: Periorbital structures: appear normal, Conjunctiva: normal, no exudate, no injection, Sclera: no appreciated abnormality, Lids and lashes: appear normal, bilaterally. 09:05 ENT: External ear(s): are unremarkable, Nose: is normal, Mouth: Lips: moist, Oral mucosa: pink and intact, moist, Posterior pharynx: Airway: no evidence of obstruction, patent, Tonsils: are normal in appearance, Uvula: midline, swelling, is not appreciated, erythema, is not appreciated, exudate, is not appreciated. 09:05 Neck: ROM/movement: is normal, is supple, without pain, no range of motions limitations, Lymph nodes: no appreciated lymphadenopathy. 09:05 Chest/axilla: Inspection: normal. 09:05 Cardiovascular: Rate: bradycardic, Rhythm: regular. 09:05 Respiratory: the patient does not display signs of respiratory distress, Respirations: normal, no use of accessory muscles, no retractions, labored breathing, is not present, Breath sounds: are clear throughout, no decreased breath sounds, no stridor, no wheezing. 09:05 Musculoskeletal/extremity: Extremities: negative for swelling. 09:05 Skin: no rash present. 09:05 Neuro: Orientation: is normal, Mentation: is normal. Vital Signs: 08:49 BP 136 / 79; Pulse 56; Resp 16 S; Temp 98.3(TE); Pulse Ox 98% on R/A; Weight 81.65 kg aa5 (R); Height 5 ft. 10 in. (177.80 cm) (R); 09:34 BP 127 / 63; Pulse 54; Resp 18 S; Temp 97.8(TE); Pulse Ox 99% on R/A; aa5 08:49 Body Mass Index 25.83 (81.65 kg, 177.80 cm) aa5 MDM: 09:00 Differential diagnosis: anaphylaxis, angioedema, urticaria. cp 09:37 Patient medically screened. cp 10:18 Data reviewed: vital signs, nurses notes, Vital signs stable. Patient resting cp comfortably in the room reports symptoms have resolved. Will discharge to home to continue oral Benadryl 50 mg every 6 hours for the next 24 hours. Can take Claritin or Zyrtec during the day and then Benadryl at night for the next 4 to 5 days. 10:22 Counseling: I had a detailed discussion with the patient and/or guardian regarding: the cp historical points, exam findings, and any diagnostic results supporting the discharge/admit diagnosis, to return to the emergency department if symptoms worsen or persist or if there are any questions or concerns that arise at home. 10:22 Response to treatment: the patient's symptoms have resolved after treatment, and as a cp result, I will discharge patient. Administered Medications: 09: Drug: Benadryl (diphenhydrAMINE) 50 mg Route: PO; aa5 10:33 Follow up: Response: No adverse reaction aa5 09:01 Drug: predniSONE 60 mg Route: PO; aa5 10:33 Follow up: Response: No adverse reaction aa5 09:01 Drug: Pepcid (famotidine) 20 mg Route: PO; aa5 10:33 Follow up: Response: No adverse reaction aa5 Disposition: 11/24 06:24 Co-signature as Attending Physician, Anthony Cortés MD I agree with the assessment and luciano plan of care. Disposition Summary: 11/23/20 10:22 Discharge Ordered Location: Home cp Problem: new cp Symptoms: have improved cp Condition: Stable cp Diagnosis - Allergy to other foods cp Followup: cp - With: Private Physician - When: 2 - 3 days - Reason: Worsening of condition Discharge Instructions: - Discharge Summary Sheet cp - Food Allergy cp Forms: - Medication Reconciliation Form cp - Work release form iw - Thank You Letter cp - Antibiotic Education cp - Prescription Opioid Use cp Prescriptions: - Pepcid 20 mg Oral Tablet - take 1 tablet by ORAL route every 12 hours for 5 days; 10 tablet; Refills: 0, cp Product Selection Permitted - Prednisone 20 mg Oral Tablet - take 2 tablets by ORAL route once daily for 5 days; 10 tablet; Refills: 0, cp Product Selection Permitted Signatures: Anthony Cortés MD MD cha Calderon, Audri, RN RN aa5 Anthony Ruano PA PA cp
--- NOTE | 2020-11-23 10:23 | ER ---
Nurse's Notes [facility] Name: Chucho Machuca Age: 24 yrs Sex: Male : 1995 Arrival Date: 11/23/2020 Time: 08:46 Bed 12 Private MD: Diagnosis: Allergy to other foods Presentation: 11/23 08:49 Chief complaint: Patient states: "I was just at work eating breakfast and my feet aa5 started itching and then my hands and now my throat is itchy as well". No signs of respiratory distress noted. Pt states "I only drank a dania drink this morning and my mom is allergic to mangos". Coronavirus screen: At this time, the client does not indicate any symptoms associated with coronavirus-19. Ebola Screen: Patient negative for fever greater than or equal to 101.5 degrees Fahrenheit, and additional compatible Ebola Virus Disease symptoms. Onset: The symptoms/episode began/occurred 30 minute(s) ago. Anaphylaxis evaluation, no signs or symptoms of anaphylaxis were noted. Initial Sepsis Screen: Does the patient meet any 2 criteria? No. Patient's initial sepsis screen is negative. Does the patient have a suspected source of infection? No. Patient's initial sepsis screen is negative. Risk Assessment: Do you want to hurt yourself or someone else? Patient reports no desire to harm self or others. Onset of symptoms was November 23, 2020. 08:49 Method Of Arrival: Ambulatory aa5 08:49 Acuity: TEQUILA 4 aa5 Triage Assessment: 08:46 General: Appears uncomfortable, Behavior is calm, cooperative. Pain: Denies pain. EENT: aa5 Reports itching to throat . Neuro: Level of Consciousness is awake, alert, obeys commands, Oriented to person, place, time, situation. Cardiovascular: Heart tones S1 S2 present Rhythm is regular. Respiratory: Airway is patent Respiratory effort is even, unlabored, Respiratory pattern is regular, symmetrical. GI: No signs and/or symptoms were reported involving the gastrointestinal system. : No signs and/or symptoms were reported regarding the genitourinary system. Derm: Skin is dry, Skin is normal, Skin temperature is warm Reports itching to hands and feet. Musculoskeletal: Range of motion: intact in all extremities. Historical: - Allergies: 08:51 PENICILLINS; aa5 - Home Meds: 08:51 None [Active]; aa5 - PMHx: 08:51 None; aa5 - PSHx: 08:51 None; aa5 - Immunization history:: Adult Immunizations up to date. - Social history:: Smoking status: Patient denies any tobacco usage or history of. Screenin:33 Abuse screen: Denies threats or abuse. Denies injuries from another. Nutritional iw screening: No deficits noted. Tuberculosis screening: No symptoms or risk factors identified. Fall Risk None identified. Assessment: 09:34 Reassessment: Patient states feeling better. Patient states symptoms have improved. aa5 General: Appears comfortable. Neuro: Level of Consciousness is awake, alert, obeys commands, Oriented to person, place, time, situation. Derm: Skin is dry, Skin is normal, Skin temperature is warm. 10:33 Respiratory: Reports Airway is patent Breath sounds are clear. iw Vital Signs: 08:49 BP 136 / 79; Pulse 56; Resp 16 S; Temp 98.3(TE); Pulse Ox 98% on R/A; Weight 81.65 kg aa5 (R); Height 5 ft. 10 in. (177.80 cm) (R); 09:34 BP 127 / 63; Pulse 54; Resp 18 S; Temp 97.8(TE); Pulse Ox 99% on R/A; aa5 08:49 Body Mass Index 25.83 (81.65 kg, 177.80 cm) aa5 ED Course: 08:46 Patient arrived in ED. as 08:49 Arm band placed on. aa5 08:51 Triage completed. aa5 08:56 Anthony Ruano PA is PHCP. cp 08:56 Anthony Cortés MD is Attending Physician. cp 09:34 Patient has correct armband on for positive identification. iw 09:36 Grace Figueroa, ANDRE is Primary Nurse. aa5 10:33 No provider procedures requiring assistance completed. Patient did not have IV access iw during this emergency room visit. Administered Medications: 09:01 Drug: Benadryl (diphenhydrAMINE) 50 mg Route: PO; aa5 10:33 Follow up: Response: No adverse reaction aa5 09:01 Drug: predniSONE 60 mg Route: PO; aa5 10:33 Follow up: Response: No adverse reaction aa5 09:01 Drug: Pepcid (famotidine) 20 mg Route: PO; aa5 10:33 Follow up: Response: No adverse reaction aa5 Outcome: 10:22 Discharge ordered by . cp 10:33 Discharged to home ambulatory. iw 10:33 Condition: good 10:33 Discharge instructions given to patient, Instructed on discharge instructions, follow up and referral plans. Demonstrated understanding of instructions, follow-up care, medications, Prescriptions given X 2. 10:34 Patient left the ED. iw Signatures: Kianna Bright Irene, RN RN iw Grace Figueroa RN RN aa5 Anthony Ruano PA PA cp Corrections: (The following items were deleted from the chart) 09:35 09:34 Pulse 54bpm; Resp 18bpm; Spontaneous; Pulse Ox 99% RA; Temp 97.8F Temporal; aa5 aa5
[2020-11-23 21:05] VITALS: BP 127/63; TEMP 97.8; O2SAT 99
== END 2020-11-23 10:34 | disposition home or self-care (01) ==
LOC: ER 08:46
DX: L29.9 Pruritus, unspecified (principal); Z91.018 Allergy to other foods; Z88.0 Allergy status to penicillin
CPT/HCPCS: 99283; J7512